=== PATIENT | male | born 1950 | race Caucasian/White ===

== ENCOUNTER 2019-11-08 22:16 | Emergency (ER) | payer SELFPAY ==
--- NOTE | 2019-11-08 23:19 | ER Document Report ---
ED Respiratory Problem - General Chief Complaint: Breathing Difficulty Stated Complaint: SHORTNESS OF BREATH Time Seen by Provider: 11/08/19 23:06 Primary Care Provider: [facility] [Provider Group] - 11/12/19 ASHLYN OLIVER MD [ACTIVE STAFF] - 11/12/19 Notes: Patient is a 69-year-old male that comes emergency department for chief complaint of sick symptoms for 1 week. He states he has had a cough, he has started coughing up greenish mucus, he states he has pressure in his sinuses, he states sometimes with the cough he feels like somewhat short of breath. He denies chest pain, fever, has had some vague body aches. He very mild sore throat. He denies nausea or vomiting, abdominal pain, chest pain, dizziness, headache, or any other complaints at this time. He states that he annually gets pneumonia about this time of year and he is concerned he will develop it. He states he is a former smoker, chews tobacco, used to drink alcohol heavily but stopped. He does not have a primary care provider, he takes no daily medications, he denies any diagnosed medical history. He denies any recent theodore el or exposures. - Related Data Allergies/Adverse Reactions: No Known Allergies Allergy (Verified 11/09/19 00:00) Past Medical History - General Information source: Patient - Social History Smoking Status: Former Smoker Chew tobacco use (# tins/day): Yes Frequency of alcohol use: None Drug Abuse: None Lives with: Alone Family History: Reviewed & Not Pertinent - Medical History Medical History: Negative Review of Systems - Review of Systems Constitutional: See HPI EENT: See HPI Cardiovascular: No symptoms reported Respiratory: See HPI Gastrointestinal: No symptoms reported Genitourinary: No symptoms reported Male Genitourinary: No symptoms reported Musculoskeletal: No symptoms reported Skin: No symptoms reported Hematologic/Lymphatic: No symptoms reported Neurological/Psychological: No symptoms reported Physical Exam - Vital signs Vitals: Temp Pulse Resp BP Pulse Ox 98.6 F 86 16 138/75 H 96 11/08/19 22:56 11/08/19 22:56 11/08/19 22:56 11/08/19 22:56 11/08/19 22:56 - Notes Notes: GENERAL: Alert, interacts well. No acute distress. HEAD: Normocephalic, atraumatic. EYES: Pupils equal, round, and reactive to light. Extraocular movements intact. ENT: Oral mucosa moist, tongue midline. Nasal congestion noted, tenderness over maxillary sinuses but nontender frontal sinuses, mild erythema the posterior pharynx without exudates or airway compromise. Unremarkable ears, unremarkable ENT exam otherwise. No noted lymphadenopathy. LUNGS: Clear to auscultation bilaterally, no wheezes, rales, or rhonchi. No respiratory distress. Occasional congested cough. HEART: Regular rate and rhythm. No murmur ABDOMEN: Soft, non-tender. Non-distended. EXTREMITIES: Moves all 4 extremities spontaneously. No edema, normal radial and dorsalis pedis pulses bilaterally. No cyanosis. BACK: no cervical, thoracic, lumbar midline tenderness. No saddle anesthesia, normal distal neurovascular exam. Moves all extremities in full range of motion. NEUROLOGICAL: Alert and oriented x3. Normal speech. Cranial nerves II through XII grossly intact. PSYCH: Normal affect, normal mood. SKIN: Warm, dry, normal turgor. No rashes or lesions noted. Course - Re-evaluation Re-evalutation: Because of patient's sore throat, congestion, cough, productive cough, and generalized sick symptoms patient had influenza and COVID-19 testing initially. However his chest x-ray is clear, his CBC is unremarkable without leukopenia, his liver function tests are unremarkable, his general chemistries are unremarkable, his oxygen saturation is normal, he is comfortable and well- appearing other than some sinus tenderness, sinus congestion, and occasional congested cough on exam. He denies chest pain. He does not have a fever here. Patient is mostly concerned that he is going to develop pneumonia because of his history. Because of his ongoing symptoms for over a week with developing sinus tenderness we will treat him for sinusitis, he will be covered for pneumonia with doxycycline as the antibiotic selection, patient was also referred to primary care after I discussed the importance of him following with primary care. Discussed return precautions in detail. Patient states appreciation and agreement. Discussed social isolation. Patient states understanding and agreement. Stable and well-appearing at time of discharge. - Vital Signs Vital signs: Temp Pulse Resp BP Pulse Ox 98.6 F 86 16 138/75 H 96 11/08/19 22:56 11/08/19 22:56 11/08/19 22:56 11/08/19 22:56 11/08/19 22:56 - Laboratory Result Diagrams: 11/08/19 23:40 11/08/19 23:40 Laboratory results interpreted by me: 11/08/19 11/08/19 23:40 23:40 WBC 10.8 H BUN 23 H Discharge - Discharge Clinical Impression: Productive cough, Body aches Sinusitis Qualifiers: Sinusitis location: unspecified location Chronicity: acute Recurrence: non- recurrent Qualified Code(s): J01.90 - Acute sinusitis, unspecified Condition: Stable Disposition: HOME, SELF-CARE Additional Instructions: Your laboratory work-up, chest x-ray, and evaluation are reassuring. Your evaluation is most consistent with a viral illness and developing sinus infection. Take antibiotic as prescribed, this should prevent development of pneumonia as well. You can take Tylenol, ibuprofen, and [id number] medications to help control your symptoms. We do have coronavirus testing pending. I recommend isolation for the next 2 weeks because of your symptoms to avoid transmitting this to someone else. Follow-up with your primary care provider closely for additional management. Return if you worsen in any way including chest pain, shortness of breath, spiking fever, severe headache, vomiting, or any other concerning worsening symptoms. Prescriptions: Doxycycline Hyclate [Vibramycin 100 mg Tablet] 100 mg PO BID 7 Days #14 tablet Referrals: [facility] [Provider Group] - 11/12/19 ASHLYN OLIVER MD [ACTIVE STAFF] - 11/12/19
[2019-11-08 23:25] VITALS: BP 138/75
--- NOTE | 2019-11-08 23:36 | RADIOLOGY REPORT (SQ) ---
EXAM DESCRIPTION: X-RAY CHEST- One View CLINICAL HISTORY: Shortness of breath COMPARISON: None available. TECHNIQUE: Single view of the chest. FINDINGS: There are no discrete air space infiltrates, pneumothoraces or pleural effusions. The pulmonary vascularity is normal. The cardiomediastinal silhouette is normal in size. No suspicious lytic or blastic osseous lesions are identified. IMPRESSION: There are no acute lung parenchymal findings.
[2019-11-09] LABS: ABSOLUTE BASOPHILS # (AUTO) 0.1 10^3/uL (0.0-0.2); ABSOLUTE EOSINOPHILS # (AUTO) 0.3 10^3/uL (0.0-0.6); ABSOLUTE MONOCYTES (AUTO) 0.9 10^3/uL (0.1-1.4); ABSOLUTE NEUT (AUTO) 7.6 10^3/uL (1.7-8.2); BASOPHILS % (AUTO) 0.5 % (0-2); EOSINOPHILS % (AUTO) 2.7 % (0-6); HEMATOCRIT 43.4 % (37.9-51.0); HEMOGLOBIN 14.9 g/dL (13.5-17.0); LYMPHOCYTES % (AUTO) 18.9 % (13-45); MEAN CORPUSCULAR HEMOGLOBIN 28.7 pg (27.0-33.4); MEAN CORPUSCULAR HGB CONC 34.3 g/dL (32.0-36.0); MEAN CORPUSCULAR VOLUME 84 fl (80-97); MONOCYTES % (AUTO) 7.9 % (3-13); PLATELET COUNT 326 10^3/uL (150-450); RED BLOOD COUNT 5.18 10^6/uL (4.35-5.55); RED CELL DISTRIBUTION WIDTH 13.1 % (11.5-14.0); TOTAL CELLS COUNTED % (AUTO) 100 %; WHITE BLOOD COUNT 10.8 10^3/uL (4.0-10.5)
[2019-11-09 00:12] LABS: ALBUMIN 4.3 g/dL (3.5-5.0); ALKALINE PHOSPHATASE 90 U/L (38-126); ANION GAP 9 (5-19); ASPARTATE AMINO TRANSFERASE 19 U/L (17-59); BILIRUBIN,DIRECT 0.3 mg/dL (0.0-0.4); BILIRUBIN,TOTAL 0.3 mg/dL (0.2-1.3); BLOOD UREA NITROGEN 23 mg/dL (7-20); CALCIUM 9.5 mg/dL (8.4-10.2); CARBON DIOXIDE 28 mmol/L (22-30); CHLORIDE 101 mmol/L (98-107); GLUCOSE 100 mg/dL (75-110)
[2019-11-09 00:22] LABS: A TYPE INFLUENZA AG NEGATIVE (NEGATIVE); B INFLUENZA AG NEGATIVE (NEGATIVE)
[2019-11-09] MEDS ORDERED: DOXYCYCLINE HYCLATE 100 MG TABLET PO ONE (00:32)
== END 2019-11-09 01:23 | disposition home or self-care (01) ==
LOC: ER 22:16
DX: J01.90 Acute sinusitis, unspecified (principal); M79.10 Myalgia, unspecified site; R06.02 Shortness of breath; R05 Cough; J02.9 Acute pharyngitis, unspecified; Z87.891 Personal history of nicotine dependence; Z20.828 Contact with and (suspected) exposure to other viral communicable diseases
CPT/HCPCS: 36415; 71045; 80053; 85025; 87635; 87804; 99283

== ENCOUNTER 2019-12-10 00:17 | Emergency (ER) | payer SELFPAY ==
--- NOTE | 2019-12-10 02:15 | ER Document Report ---
ED General - General Chief Complaint: Breathing Difficulty Stated Complaint: COLD SYMPTOMS Time Seen by Provider: 12/10/19 01:38 Notes: 69-year-old male with no known past medical history presents emergency department with chief complaint of maxillary sinus pressure for "several days. Patient states it has interfered with his rest. Patient denies any fevers or chills, denies any ear pain, denies any neck stiffness, denies sore throat, tamanna es rhinorrhea, denies any eye discharge. Patient denies any acute shortness of breath or chest pain. Patient does not have a primary care provider has not been seen for this. No other complaints - Related Data Allergies/Adverse Reactions: No Known Allergies Allergy (Verified 11/09/19 00:00) Past Medical History - Social History Smoking Status: Never Smoker Family History: Reviewed & Not Pertinent Patient has suicidal ideation: No Patient has homicidal ideation: No Review of Systems - Review of Systems Constitutional: See HPI EENT: See HPI Cardiovascular: See HPI Respiratory: See HPI Gastrointestinal: No symptoms reported Genitourinary: No symptoms reported Male Genitourinary: No symptoms reported Musculoskeletal: No symptoms reported Skin: No symptoms reported Hematologic/Lymphatic: No symptoms reported Neurological/Psychological: No symptoms reported Physical Exam - Vital signs Vitals: Temp 98.0 F 12/10/19 00:17 - Notes Notes: PHYSICAL EXAMINATION: Reviewed vital signs and charting by RN GENERAL: Alert, interacts well. No acute distress. HEAD: Normocephalic, atraumatic. EYES: Pupils equal and round. Extraocular movements intact. ENT: Oral mucosa moist, tongue midline. Mild tenderness to palpation over the bilateral maxillary sinuses, no tenderness to palpation over the frontal sinuses. Right TM visualized, no erythema or bulging, left TM not visualized due to large amount of wax NECK: Full range of motion. Trachea midline. LUNGS: Clear to auscultation bilaterally, no wheezes, rales, or rhonchi. No respiratory distress. HEART: Regular rate and rhythm. No murmur EXTREMITIES: Moves all 4 extremities spontaneously. No edema, No cyanosis. PSYCH: Normal affect, normal mood. SKIN: Warm, dry, normal turgor. No rashes or lesions noted. Course - Re-evaluation Re-evalutation: 12/10/19 02:17 Well-appearing in no acute distress, afebrile, vital signs recorded, nursing notes read. Patient presents with acute sinusitis less than 10 days. Antibiotics are not indicated. Extraocular movements intact. Patient with no meningismus so I have low suspicion for any concerning etiology like meningitis, there is no evidence of otitis media on inspection, and no evidence of a pharyngitis. Patient has been given instructions for conservative treatment and strict return precautions. He is stable for discharge - Vital Signs Vital signs: Temp Pulse Resp BP Pulse Ox 98.2 F 77 16 116/77 95 12/10/19 00:23 12/10/19 00:23 12/10/19 00:23 12/10/19 00:12/10/19 00:23 Discharge - Discharge Clinical Impression: Acute sinusitis Qualifiers: Sinusitis location: maxillary Recurrence: non-recurrent Qualified Code(s): J01.00 - Acute maxillary sinusitis, unspecified Condition: Good Disposition: HOME, SELF-CARE Additional Instructions: Your symptoms are most consistent with acute sinusitis. Because you have been having symptoms for less than 10 days antibiotics are not recommended as the vast majority of cases are viral in nature. We have given you some Afrin, Tylenol, and Sudafed here in the emergency department. Please continue to take Tylenol 1000 mg every 6 hours for pain, by some saline rinse, and you can also buy a Jany pot. You can also purchase [id number] Sudafed that you can take every 12 hours. If you develop worsening pain, vision changes, neck stiffness, or you have any other concerning symptoms please immediately return to the emergency department.
[2019-12-10] MEDS ORDERED: ACETAMINOPHEN 325 MG TABLET PO ONE (02:19)
[2019-12-10] MEDS ORDERED: PSEUDOEPHEDRINE HCL 30 MG TABLET PO ONE (02:20)
[2019-12-10] MEDS ORDERED: OXYMETAZOLINE HCL 0.05% NASAL SPRAY 15 ML BOTTLE NASL ONE (02:20)
[2019-12-10 02:41] VITALS: BP 130/80
[2019-12-11] MEDS ORDERED: DIPHENHYDRAMINE HCL 25 MG CAPSULE PO PRN (10:14)
[2019-12-11] MEDS ORDERED: ACETAMINOPHEN 325 MG TABLET PO PRN (10:15)
== END 2019-12-10 02:40 | disposition home or self-care (01) ==
LOC: ER 00:17
DX: J01.00 Acute maxillary sinusitis, unspecified (principal); R51 Headache
CPT/HCPCS: 99283; J3490

== ENCOUNTER 2020-01-11 19:15 | Emergency (ER) | payer MEDICARE, SELFPAY ==
--- NOTE | 2020-01-11 20:07 | ER Document Report ---
ED ENT - General Chief Complaint: Sinus Congestion Stated Complaint: SINUS ISSUES Time Seen by Provider: 01/11/20 19:53 Mode of Arrival: Ambulatory Information source: Patient Notes: Patient is a 69-year-old male comes emergency room complaining of sinus congestion. Patient states is been going on and off for the last month and a half. Notices it gets worse with the change in the weather. He is tried flushing his nose out without any success. He denies any fevers no nausea vomiting or diarrhea. He has no medications and denies any medical problems. TRAVEL OUTSIDE OF THE [place] IN LAST 30 DAYS: No - HPI Patient complains to provider of: Nose problem Onset: Other - Month and a half Onset/Duration: Gradual, Intermittent Severity: Moderate Pain Level: 3 Context: Allergies. denies: Injury, Recent Illness, Travel Location of pain: Nose, Sinus Associated symptoms: Congestion, Runny nose, Sinus pain, Sinus drainage. denies: Cough, Difficulty swallowing, Ear drainage, Face swelling, Fever, Sore throat, Swollen glands Similar symptoms previously: Yes Recently seen / treated by doctor: No - Related Data Allergies/Adverse Reactions: Penicillins Allergy (Verified 01/11/20 19:57) Past Medical History - General Information source: Patient - Social History Smoking Status: Never Smoker Frequency of alcohol use: None Drug Abuse: None Family History: Reviewed & Not Pertinent Patient has homicidal ideation: No Review of Systems - Review of Systems Constitutional: No symptoms reported EENT: Nose congestion, Nose discharge, Sinus pressure, Sinus discharge Cardiovascular: No symptoms reported Respiratory: No symptoms reported Gastrointestinal: No symptoms reported Genitourinary: No symptoms reported Male Genitourinary: No symptoms reported Musculoskeletal: No symptoms reported Skin: No symptoms reported Hematologic/Lymphatic: No symptoms reported Neurological/Psychological: No symptoms reported -: Yes All other systems reviewed and negative Physical Exam - Vital signs Vitals: Temp Pulse Resp BP Pulse Ox 98.2 F 80 18 148/77 H 98 01/11/20 19:19 01/11/20 19:19 01/11/20 19:19 01/11/20 19:19 01/11/20 19:19 Interpretation: Hypertensive - Notes Notes: PHYSICAL EXAMINATION: GENERAL: Well-appearing, well-nourished and in no acute distress. HEAD: Atraumatic, normocephalic. EYES: Pupils equal round and reactive to light, extraocular movements intact, sclera anicteric, conjunctiva are normal. ENT: Examination of the head and upper airway showed nasal mucosa moderately erythematous edematous with rhinorrhea noted yellowish-green in color. Mild frontal Sinus tenderness to palpation. Bilateral TMs difficult to see some secondary to cerumen throughout but what can be visualized does not look like it has any bulging or retractions. Further investigation shows the patient has severe congestion bilaterally in the nares. Examination posterior pharynx shows mild erythema without exudate. There is some mild drainage in the posterior pharynx with light yellowish in color.. NECK: Normal range of motion, supple without lymphadenopathy LUNGS: Breath sounds clear to auscultation bilaterally and equal. No wheezes rales or rhonchi. HEART: Regular rate and rhythm without murmurs NEUROLOGICAL: . Normal speech, normal gait. Normal sensory, motor exams PSYCH: Normal mood, normal affect. SKIN: Warm, Dry, normal turgor, no rashes or lesions noted. Course - Re-evaluation Re-evalutation: 01/12/20 00:30 Patient's presentation 1 of environmental allergy type. Appears that when the weather changes patient gets this severe congestion. Given that the weather is been changing recently I felt it was only necessary to treat him for a sinus congestion presentation. Did not feel antibiotics were appropriate no fever was reported. - Vital Signs Vital signs: Temp Pulse Resp BP Pulse Ox 98 F 76 16 140/70 H 98 01/11/20 20:18 01/11/20 20:18 01/11/20 20:18 01/11/20 20:18 01/11/20 20:18 Discharge - Discharge Clinical Impression: Nasal congestion Sinusitis Qualifiers: Sinusitis location: unspecified location Chronicity: acute Recurrence: non- recurrent Qualified Code(s): J01.90 - Acute sinusitis, unspecified Disposition: HOME, SELF-CARE Instructions: Sinusitis ([facility]) Additional Instructions: Home and rest. Use nasal saline 3-4 times a day to keep nose moist and secretions thin and to reactivate the nasal sprays that I am writing you. Highly suggest follow-up with your primary care provider for further intervention and continuation of care. Use the nasal sprays on a daily basis. I am also writing you for an antihistamine called Coricidin/Chlor-Trimeton if it is not by prescription at your pharmacy you can get it [id number] it under in the nickname of Tiff. Should have any concerns or problems arise return to ER for recheck. Prescriptions: Azelastine HCl 205.5 mcg NS BID #1 bottle Chlorpheniramine Maleate [Chlor-Trimeton 4 Mg Tablet] 4 mg PO TID #21 tablet Fluticasone Propionate [Flonase Nasal [place] 50 Mcg/[place] 16 gm] 2 sprays NASL Q12 #1 inhaler
[2020-01-11 20:21] VITALS: BP 140/70
== END 2020-01-11 20:18 | disposition home or self-care (01) ==
LOC: ER 19:15
DX: J01.90 Acute sinusitis, unspecified (principal); R09.81 Nasal congestion; R09.89 Other specified symptoms and signs involving the circulatory and respiratory systems; Z88.0 Allergy status to penicillin
CPT/HCPCS: 99283